=== PATIENT | male | born 1975 ===

== ENCOUNTER 2020-05-18 12:24 | Inpatient (IN) ==
[2020-05-18 13:27] LABS: Basophils % 0.5 %; Eosinophils # 0.1 K/mcL (0.0-0.6); Eosinophils % 0.7 %; Hematocrit 44.8 % (37.5-50.1); Hemoglobin 14.1 g/dL (12.9-16.9); Immature Granulocytes % 0.3 % (0-4); Lymphocytes # 2.4 K/mcL (0.6-4.6); Lymphocytes % 32.3 %; Mean Corpuscular HGB Conc 31.5 g/dL (31.6-35.5); Mean Corpuscular Hemoglobin 26.9 pg (28.0-33.3); Mean Corpuscular Volume 85.3 fL (83.0-100.0); Mean Platelet Volume 9.4 fL (9.4-12.4); Monocytes # 0.6 K/mcL (0.0-1.3); Monocytes % 7.5 %; Neutrophils # 4.4 K/mcL (1.6-8.9); Platelet Count 318 K/mcL (140-400); Red Blood Count 5.25 M/mcL (4.19-5.50); Red Cell Distribution Width 14.9 % (11.5-14.5); Segmented Neutrophils % 58.7 %; White Blood Count 7.6 K/mcL (4.3-11.1)
[2020-05-18 13:32] LABS: Bacteria,Urine Few per hpf (None-Few); Bilirubin,Urine Negative (Negative); Blood,Urine Negative (Negative); Clarity,Urine Clear (Clear); Color,Urine Yellow (Yellow); Glucose,Urine (UA) Normal (Normal); Granular Casts,Urine Many per lpf (None Seen); Hyaline Casts,Urine Moderate per lpf (None Seen); Ketones,Urine Trace mg/dL (Negative); Leukocyte Esterase,Urine Negative (Negative); Mucus,Urine Few per lpf (None-Few); Nitrite,Urine Negative (Negative); PH,Urine 5.5 pH Units (5.0-8.0); Protein,Urine 50 mg/dL (Neg-Trace); RBC,Urine 0-3 per hpf (0-3); Specific Gravity,Urine 1.025 (1.010-1.025); Squamous Epithelial Cell,Urine Few per hpf (None-Few); Urobilinogen,Urine Normal (Normal); WBC,Urine 0-3 per hpf (0-3)
[2020-05-18 13:35] LABS: INR 1.5; Prothrombin Time 17.4 Seconds (9.4-12.1)
[2020-05-18 13:38] LABS: Activated Partial Thrombo Time 32.4 Seconds (26.0-36.0)
[2020-05-18] MEDS ORDERED: Isovue-370 500 ML BOTTLE IVP ONE ×2 (13:49→13:50)
[2020-05-18] MEDS ORDERED: 0.9 % Sodium Chloride 1,000 ML IVC ONE (14:26)
[2020-05-18 14:36] LABS: Alanine Aminotransferase 241 Units/L (7-52); Albumin 3.3 g/dL (3.5-5.7); Alkaline Phosphatase 57 Units/L (34-104); Aspartate Amino Transferase 65 Units/L (13-39); BUN/Creatinine Ratio 25 (6-26); Blood Urea Nitrogen 29 mg/dL (6-20); Calcium 8.4 mg/dL (8.6-10.3); Carbon Dioxide 19 mEq/L (23-29); Chloride 101 mEq/L (98-107); Globulin 3.2 g/dL (2.4-3.5); Glucose 90 mg/dL (70-105); Osmolality,Calculated 279 (280-300); Potassium 4.3 mEq/L (3.5-5.1); Sodium 132 mEq/L (136-145); Total Protein 6.5 g/dL (6.4-8.9); eGFR For African Americans > 60 (> 60); eGFR For Non-African Americans > 60 (> 60)
[2020-05-18 14:40] LABS: Troponin I 0.06 ng/mL (< 0.04)
[2020-05-18] MEDS ORDERED: *HR* Labetalol 20 MG/4 ML SYRINGE IVP ONE (14:42)
[2020-05-18] MEDS ORDERED: Azithromycin 500 MG in 0.9 % Sodium Chloride 250 ML IVPB ONE (16:12)
[2020-05-18] MEDS ORDERED: Aspirin 325 MG TABLET PO ONE (16:33)
[2020-05-18] MEDS ORDERED: MOM Conc 10 ML UD.LIQ PO PRN (16:48)
[2020-05-18] MEDS ORDERED: Ondansetron 4 MG/2 ML VIAL IVP PRN (16:48)
[2020-05-18] MEDS ORDERED: Naloxone 0.4 MG/ML INJ IVP PRN (16:48)
[2020-05-18] MEDS ORDERED: Acetaminophen 325 MG TABLET PO PRN (16:48)
[2020-05-18] MEDS ORDERED: *HR* HYDROcodone/Acet 5/325 mg TABLET PO PRN (16:48)
[2020-05-18] MEDS ORDERED: Perflutren Lipid Microsphere 1.3 ML in 0.9 % Sodium Chloride 8.7 ML IVP PRN (16:50)
[2020-05-18] MEDS ORDERED: Furosemide 40 MG/4 ML VIAL ONE (17:12)
[2020-05-18] MEDS: Furosemide 40 MG/4 ML VIAL IVP ONE (17:17)
[2020-05-18 17:31] LABS: ABG Base Excess -12 mEq/L (-2 to 3); ABG HCO3 13 mEq/L (21-27); ABG Oxygen Saturation 94 % (95-98); ABG PCO2 28 mmHg (35-45); ABG PH 7.27 pH Units (7.32-7.45); ABG PO2 81 mmHg (85-104); ABG TCO2 14 mEq/L (20-26); Blood Gas Modality BiLevel; Blood Gas Pressure Support 6 cm H2O
[2020-05-18] MEDS ORDERED: *HR* Dextrose 50 % in Water (Vial) 50 ML VIAL IVP ONE (18:37)
[2020-05-18] MEDS: cefTRIAXone 1,000 MG in 0.9 % Sodium Chloride Mini Bag 100 ML IVPB SCH (21:11)
[2020-05-18] MEDS: *HR* Heparin 5,000 UNIT/ML VIAL SQ SCH (21:12)
[2020-05-18] MEDS: Furosemide 20 MG/2 ML VIAL IVP SCH (21:12)
[2020-05-18] MEDS: lisinopriL 10 MG TABLET PO SCH (21:12)
[2020-05-18 22:07] LABS: Amphetamine Screen,Urine Negative ng/mL (Cutoff=1000); Barbiturate Screen,Urine Negative ng/mL (Cutoff=200); Benzodiazepines Screen,Urine Negative ng/mL (Cutoff=200); Cannabinoid Screen,Urine Negative ng/mL (Cutoff = 50); Cocaine Screen,Urine Negative ng/mL (Cutoff= 300); Opiate Screen,Urine Negative ng/mL (Cutoff=300); Phencyclidine Screen,Urine Negative ng/mL (Cutoff=25)
[2020-05-18 22:36] LABS: BUN/Creatinine Ratio 26 (6-26); Blood Urea Nitrogen 29 mg/dL (6-20); Calcium 8.1 mg/dL (8.6-10.3); Carbon Dioxide 19 mEq/L (23-29); Chloride 104 mEq/L (98-107); Glucose 143 mg/dL (70-105); Osmolality,Calculated 284 (280-300); Potassium 4.2 mEq/L (3.5-5.1); Sodium 133 mEq/L (136-145); eGFR For African Americans > 60 (> 60); eGFR For Non-African Americans > 60 (> 60)
[2020-05-19 03:16] LABS: Basophils % 0.3 %; Hematocrit 40.8 % (37.5-50.1); Hemoglobin 12.6 g/dL (12.9-16.9); Immature Granulocytes % 0.3 % (0-4); Lymphocytes # 1.5 K/mcL (0.6-4.6); Lymphocytes % 21.4 %; Mean Corpuscular HGB Conc 30.9 g/dL (31.6-35.5); Mean Corpuscular Hemoglobin 26.5 pg (28.0-33.3); Mean Corpuscular Volume 85.7 fL (83.0-100.0); Mean Platelet Volume 9.7 fL (9.4-12.4); Monocytes # 0.5 K/mcL (0.0-1.3); Monocytes % 7.1 %; Neutrophils # 4.8 K/mcL (1.6-8.9); Platelet Count 261 K/mcL (140-400); Red Blood Count 4.76 M/mcL (4.19-5.50); Segmented Neutrophils % 70.9 %; White Blood Count 6.8 K/mcL (4.3-11.1)
[2020-05-19 03:38] LABS: BUN/Creatinine Ratio 27 (6-26); Blood Urea Nitrogen 27 mg/dL (6-20); Calcium 7.9 mg/dL (8.6-10.3); Carbon Dioxide 21 mEq/L (23-29); Chloride 106 mEq/L (98-107); Chol/HDL Ratio 4.3 (0-4.9); Cholesterol 51 mg/dL (< 200); Glucose 122 mg/dL (70-105); HDL Cholesterol 12 mg/dL (40-59); LDL Cholesterol,Calculated 29 mg/dL (< 100); Osmolality,Calculated 288 (280-300); Phosphorous 4.7 mg/dL (2.7-4.5); Potassium 4.3 mEq/L (3.5-5.1); Sodium 136 mEq/L (136-145); Triglycerides 48 mg/dL (< 150); eGFR For African Americans > 60 (> 60); eGFR For Non-African Americans > 60 (> 60)
[2020-05-19] MEDS: Furosemide 40 MG/4 ML VIAL IVP ONE (05:32)
[2020-05-19] MEDS: *HR* Heparin 5,000 UNIT/ML VIAL SQ SCH ×2 (05:39→18:08)
[2020-05-19] MEDS ORDERED: Azithromycin 500 MG in 0.9 % Sodium Chloride 250 ML IVPB SCH (09:00)
[2020-05-19] MEDS: Aspirin Enteric Coated 81 MG Tablet PO SCH (10:11)
[2020-05-19] MEDS: Furosemide 20 MG/2 ML VIAL IVP SCH ×2 (10:11→20:07)
[2020-05-19] MEDS: cefTRIAXone 1,000 MG in 0.9 % Sodium Chloride Mini Bag 100 ML IVPB SCH (10:15)
[2020-05-19] MEDS: lisinopriL 10 MG TABLET PO SCH (10:15)
[2020-05-19 11:08] LABS: Adenovirus Not Detected (Not Detect); Bordetella Pertussis Not Detected (Not Detect); Chlamydophila pneumoniae Not Detected (Not Detect); Coronavirus 229E Not Detected (Not Detect); Coronavirus HKU1 Not Detected (Not Detect); Coronavirus NL63 Not Detected (Not Detect); Coronavirus OC43 Not Detected (Not Detect); Human Metapneumovirus Not Detected (Not Detect); Human Rhinovirus/Enterovirus Not Detected (Not Detect); Influenza A Subtype 2009 H1 Not Detected (Not Detect); Influenza B Not Detected (Not Detect); Mycoplasma pneumoniae Not Detected (Not Detect); Parainfluenza Virus 1 Not Detected (Not Detect); Parainfluenza Virus 2 Not Detected (Not Detect); Parainfluenza Virus 3 Not Detected (Not Detect); Parainfluenza Virus 4 Not Detected (Not Detect); Respiratory Syncytial Virus Not Detected (Not Detect); SARS-CoV-2 Not Detected (Not Detect)
[2020-05-19] MEDS ORDERED: Nitroglycerin 0.4 MG TAB.SUBL SL PRN (11:28)
[2020-05-19] MEDS ORDERED: MethylPREDNISolone 40 MG/ML VIAL IVP ONE (11:39)
[2020-05-19] MEDS ORDERED: Albuterol 2.5 MG/3 ML NEBULIZER IH PRN (12:24)
[2020-05-20 02:28] LABS: Basophils % 0.2 %; Hematocrit 41.5 % (37.5-50.1); Hemoglobin 12.9 g/dL (12.9-16.9); Immature Granulocytes % 0.4 % (0-4); Lymphocytes # 1.2 K/mcL (0.6-4.6); Lymphocytes % 21.3 %; Mean Corpuscular HGB Conc 31.1 g/dL (31.6-35.5); Mean Corpuscular Hemoglobin 26.3 pg (28.0-33.3); Mean Corpuscular Volume 84.5 fL (83.0-100.0); Monocytes # 0.1 K/mcL (0.0-1.3); Monocytes % 1.5 %; Neutrophils # 4.1 K/mcL (1.6-8.9); Platelet Count 283 K/mcL (140-400); Red Blood Count 4.91 M/mcL (4.19-5.50); Red Cell Distribution Width 15.1 % (11.5-14.5); Segmented Neutrophils % 76.6 %; White Blood Count 5.4 K/mcL (4.3-11.1)
[2020-05-20 02:42] LABS: BUN/Creatinine Ratio 27 (6-26); Blood Urea Nitrogen 29 mg/dL (6-20); Calcium 8.2 mg/dL (8.6-10.3); Carbon Dioxide 22 mEq/L (23-29); Chloride 105 mEq/L (98-107); Glucose 145 mg/dL (70-105); Magnesium 2.2 mg/dL (1.6-2.6); Osmolality,Calculated 288 (280-300); Phosphorous 3.9 mg/dL (2.7-4.5); Potassium 4.6 mEq/L (3.5-5.1); Sodium 135 mEq/L (136-145); eGFR For African Americans > 60 (> 60); eGFR For Non-African Americans > 60 (> 60)
[2020-05-20] MEDS: *HR* Heparin 5,000 UNIT/ML VIAL SQ SCH ×2 (05:35→17:25)
[2020-05-20] MEDS: Aspirin Enteric Coated 81 MG Tablet PO SCH (08:02)
[2020-05-20] MEDS: lisinopriL 10 MG TABLET PO SCH (08:02)
[2020-05-20] MEDS: Furosemide 20 MG/2 ML VIAL IVP SCH ×2 (08:03→20:25)
[2020-05-20] MEDS: levoFLOXacin 750 MG/150 ML 750 MG/150 ML BAG IVPB SCH (08:03)
[2020-05-20] MEDS ORDERED: carvediloL 6.25 MG TABLET PO SCH (17:00)
[2020-05-20] MEDS: carvediloL 6.25 MG TABLET PO SCH (17:25)
[2020-05-21] MEDS: *HR* Heparin 5,000 UNIT/ML VIAL SQ SCH ×3 (04:50→21:51)
[2020-05-21] MEDS: lisinopriL 10 MG TABLET PO SCH (08:34)
[2020-05-21] MEDS: Aspirin Enteric Coated 81 MG Tablet PO SCH (08:34)
[2020-05-21] MEDS: carvediloL 6.25 MG TABLET PO SCH ×2 (08:34→16:44)
[2020-05-21] MEDS: Furosemide 20 MG/2 ML VIAL IVP SCH ×2 (08:35→20:04)
[2020-05-21] MEDS: levoFLOXacin 750 MG/150 ML 750 MG/150 ML BAG IVPB SCH (08:36)
[2020-05-21] MEDS ORDERED: *HR* LORazepam 0.5 MG TABLET PO PRN (08:39)
[2020-05-21] MEDS ORDERED: 0.9 % Sodium Chloride 2,000 ML ONE (10:12)
[2020-05-21] MEDS ORDERED: Nitroglycerin 1,000 MCG/10 ML VIAL IV ONE (10:12)
[2020-05-21] MEDS ORDERED: ISOVUE-370 200 ML INFUS..BTL ONE (10:12)
[2020-05-21] MEDS ORDERED: Heparin 1,000 UNITS/500 mL 500 ML ONE (10:12)
[2020-05-21] MEDS ORDERED: *HR* Heparin 10,000 UNIT/10 ML VIAL ONE (10:12)
[2020-05-21] MEDS ORDERED: *HR* FentaNYL (PF) 100 MCG/2 ML VIAL ONE (10:45)
[2020-05-21] MEDS ORDERED: *HR* Midazolam HCl 2 MG/2 ML VIAL ONE (10:45)
[2020-05-22 00:58] LABS: Basophils % 0.1 %; Eosinophils % 0.2 %; Hematocrit 41.7 % (37.5-50.1); Hemoglobin 13.1 g/dL (12.9-16.9); Immature Granulocytes % 0.4 % (0-4); Lymphocytes % 32.8 %; Mean Corpuscular HGB Conc 31.4 g/dL (31.6-35.5); Mean Corpuscular Hemoglobin 27.4 pg (28.0-33.3); Mean Corpuscular Volume 87.2 fL (83.0-100.0); Mean Platelet Volume 9.7 fL (9.4-12.4); Monocytes # 0.8 K/mcL (0.0-1.3); Monocytes % 8.3 %; Nucleated Red Blood Cells 0.2 /100 WBC (0); Platelet Count 266 K/mcL (140-400); Red Blood Count 4.78 M/mcL (4.19-5.50); Segmented Neutrophils % 58.2 %
[2020-05-22] MEDS: Mag Hydrox/Al Hydrox/Simeth 30 ML UDC PO PRN ×2 (01:01→10:05)
[2020-05-22 01:05] LABS: Neutrophils # 5.4 K/mcL (1.6-8.9); White Blood Count 9.2 K/mcL (4.3-11.1)
[2020-05-22 01:17] LABS: Alanine Aminotransferase 131 Units/L (7-52); Albumin 2.9 g/dL (3.5-5.7); Alkaline Phosphatase 62 Units/L (34-104); Aspartate Amino Transferase 52 Units/L (13-39); BUN/Creatinine Ratio 33 (6-26); Bilirubin,Direct 0.2 mg/dL (0.0-0.2); Bilirubin,Indirect 0.3 mg/dL (0.0-1.0); Bilirubin,Total 0.5 mg/dL (0.3-1.0); Blood Urea Nitrogen 36 mg/dL (6-20); Carbon Dioxide 22 mEq/L (23-29); Chloride 103 mEq/L (98-107); Globulin 2.8 g/dL (2.4-3.5); Glucose 107 mg/dL (70-105); Magnesium 2.3 mg/dL (1.6-2.6); Osmolality,Calculated 285 (280-300); Potassium 4.4 mEq/L (3.5-5.1); Sodium 133 mEq/L (136-145); Total Protein 5.7 g/dL (6.4-8.9); eGFR For African Americans > 60 (> 60); eGFR For Non-African Americans > 60 (> 60)
[2020-05-22] MEDS: *HR* Heparin 5,000 UNIT/ML VIAL SQ SCH (05:09)
[2020-05-22] MEDS ORDERED: Spironolactone 25 MG TABLET PO SCH (09:00)
[2020-05-22] MEDS: levoFLOXacin 750 MG/150 ML 750 MG/150 ML BAG IVPB SCH (09:43)
[2020-05-22] MEDS: lisinopriL 10 MG TABLET PO SCH (09:43)
[2020-05-22] MEDS: carvediloL 6.25 MG TABLET PO SCH (09:43)
[2020-05-22] MEDS: Aspirin Enteric Coated 81 MG Tablet PO SCH (09:43)
[2020-05-22] MEDS: Furosemide 20 MG/2 ML VIAL IVP SCH (09:44)
[2020-05-22 15:25] VITALS: BP 128/102
[2020-05-23] MEDS ORDERED: lisinopriL 10 MG TABLET PO SCH (09:00)
[2020-05-27 14:36] LABS: Coxsackie B Type 1 Antibody 1:10 (<1:10); Coxsackie B Type 2 Antibody 1:40 (<1:10); Coxsackie B Type 3 Antibody <1:10 (<1:10); Coxsackie B Type 4 Antibody 1:40 (<1:10); Coxsackie B Type 5 Antibody <1:10 (<1:10)
[2020-05-27 15:43] LABS: Coxsackie B Type 6 Antibody <1:10 (<1:10)
== END 2020-05-22 16:49 | disposition home or self-care (01) | DRG 280 ==
LOC: 2ANU 12:24 → EMEROOARM 12:24 → ICNU 18:00 → 2NNU 18:20 → SUATTDRO 05-19 14:40
PROVIDERS: ADMIT General Practice; ATTEND Pharmacist